=== PATIENT | male | born 1975 | race Caucasian/White ===

== ENCOUNTER 2022-02-11 17:20 | Inpatient (IN) | payer OTHER ==
[2022-02-11 19:40] VITALS: BMI 29.2
[2022-02-11] MEDS ORDERED: LOPERAMIDE HCL 2 MG CAPSULE PO PRN (20:10)
[2022-02-11] MEDS ORDERED: guaiFENesin 200 MG/10 ML 10 ML UNIT-DOSE CUPS PO PRN (20:10)
[2022-02-11] MEDS ORDERED: BISMUTH SUBSALICYLATE 524 MG/30 ML PO PRN (20:10)
[2022-02-11] MEDS ORDERED: P-EPHED 60MG/TRIPROLIDI 2.5MG TABLET PO PRN (20:10)
[2022-02-11] MEDS ORDERED: IBUPROFEN 600 MG TABLET (FP) PO PRN (20:10)
[2022-02-11] MEDS ORDERED: IBUPROFEN 400 MG TABLET (FP) PO PRN (20:10)
[2022-02-11] MEDS ORDERED: MAGNESIUM HYDROX 2400MG/30ML ORAL SUSPENSION 30 ML CUP PO PRN (20:10)
[2022-02-11] MEDS ORDERED: MAG HYDROX/AL HYDROX/SIMETH 30 ML UNIT-DOSE CUP PO PRN (20:10)
[2022-02-11] MEDS ORDERED: ACETAMINOPHEN 325 MG TABLET (FP) PO PRN (20:10)
[2022-02-11] MEDS ORDERED: ONDANSETRON *ODT* 4 MG TABLET SL PRN (20:10)
[2022-02-11] MEDS ORDERED: BENZOCAINE/MENTHOL (CHLORASEPTIC ) LOZENGE MM PRN (20:10)
[2022-02-11] MEDS ORDERED: POLYETHYLENE GLYCOL (HEALTHYLAX) 3350 17 GM PACKET PO PRN (20:10)
[2022-02-11] MEDS ORDERED: cloNIDine HCL 0.1 MG TABLET PO ONE (21:18)
[2022-02-11] MEDS: THIAMINE HCL 100 MG TABLET (FP) PO SCH (22:35)
[2022-02-11] MEDS: METHOCARBAMOL 500 MG TABLET PO PRN (22:36)
[2022-02-11] MEDS: MELATONIN 5 MG TABLETS PO SCH (22:36)
[2022-02-11] MEDS: diazePAM 5 MG TABLET PO SCH (22:36)
[2022-02-11] MEDS: NICOTINE 10 MG CARTRIDGE (INHALER) IH PRN (22:39)
[2022-02-12] MEDS: METHOCARBAMOL 500 MG TABLET PO PRN ×2 (05:08→10:10)
[2022-02-12] MEDS: diazePAM 5 MG TABLET PO SCH ×4 (05:08→22:12)
[2022-02-12] MEDS: NICOTINE 10 MG CARTRIDGE (INHALER) IH PRN ×4 (07:42→22:21)
[2022-02-12] MEDS: PRENATAL VITAMINS W/ FOLIC ACID TABLET (FP) PO SCH (10:09)
[2022-02-12] MEDS: hydrOXYzine PAMOATE 25 MG CAPSULE (FP) PO PRN (10:10)
[2022-02-12] MEDS: ACETAMINOPHEN 325 MG TABLET (FP) PO PRN ×2 (10:10→17:24)
[2022-02-12] MEDS: DICYCLOMINE HCL 10 MG CAPSULE PO PRN (10:12)
[2022-02-12] MEDS: THIAMINE HCL 100 MG TABLET (FP) PO SCH (22:12)
[2022-02-12] MEDS: MELATONIN 5 MG TABLETS PO SCH (22:21)
[2022-02-13] MEDS: diazePAM 5 MG TABLET PO PRN ×3 (02:33→17:17)
[2022-02-13] MEDS: diazePAM 5 MG TABLET PO SCH ×3 (05:26→22:17)
[2022-02-13] MEDS: hydrOXYzine PAMOATE 25 MG CAPSULE (FP) PO PRN ×2 (05:27→10:17)
[2022-02-13] MEDS: METHOCARBAMOL 500 MG TABLET PO PRN (10:17)
[2022-02-13] MEDS: PRENATAL VITAMINS W/ FOLIC ACID TABLET (FP) PO SCH (10:17)
[2022-02-13] MEDS: NICOTINE 10 MG CARTRIDGE (INHALER) IH PRN ×3 (10:20→22:21)
[2022-02-13] MEDS: MELATONIN 5 MG TABLETS PO SCH (22:18)
[2022-02-13] MEDS: DICYCLOMINE HCL 10 MG CAPSULE PO PRN (22:19)
[2022-02-13] MEDS: THIAMINE HCL 100 MG TABLET (FP) PO SCH (22:21)
[2022-02-13] MEDS: NICOTINE POLACRILEX 2 MG GUM BUC PRN (22:49)
[2022-02-14] MEDS: diazePAM 5 MG TABLET PO SCH ×2 (05:07→17:38)
[2022-02-14] MEDS: NICOTINE 10 MG CARTRIDGE (INHALER) IH PRN ×3 (09:02→18:39)
[2022-02-14] MEDS: NICOTINE POLACRILEX 2 MG GUM BUC PRN ×3 (09:03→18:39)
[2022-02-14] MEDS: diazePAM 5 MG TABLET PO PRN (10:19)
[2022-02-14] MEDS: METHOCARBAMOL 500 MG TABLET PO PRN (10:19)
[2022-02-14] MEDS: hydrOXYzine PAMOATE 25 MG CAPSULE (FP) PO PRN ×2 (10:19→22:12)
[2022-02-14] MEDS: PRENATAL VITAMINS W/ FOLIC ACID TABLET (FP) PO SCH (10:19)
[2022-02-14] MEDS: THIAMINE HCL 100 MG TABLET (FP) PO SCH (22:12)
[2022-02-14] MEDS: MELATONIN 5 MG TABLETS PO SCH (22:12)
[2022-02-15] MEDS: NICOTINE 10 MG CARTRIDGE (INHALER) IH PRN ×2 (05:25→10:19)
[2022-02-15] MEDS ORDERED: diazePAM 5 MG TABLET PO ONE (06:00)
[2022-02-15 06:25] VITALS: PULSE 92
[2022-02-15 09:55] VITALS: BP 139/88; RESP 16; TEMP 97.3
[2022-02-15] MEDS: PRENATAL VITAMINS W/ FOLIC ACID TABLET (FP) PO SCH (10:19)
[2022-02-15] MEDS: NICOTINE POLACRILEX 2 MG GUM BUC PRN (10:19)
== END 2022-02-15 10:45 | disposition other institution (70) | DRG 775 ==
LOC: YASAS 17:20 → Y6N 20:30
PROVIDERS: ADMIT Allergy & Immunology; ATTEND Surgery
PROC: HZ2ZZZZ Detoxification Services for Substance Abuse Treatment (ICD-10-PCS; principal; 2022-02-11)
DX: F10.230 Alcohol dependence with withdrawal, uncomplicated (principal); F17.210 Nicotine dependence, cigarettes, uncomplicated; Z86.69 Personal history of other diseases of the nervous system and sense organs
CPT/HCPCS: 36415; 86780; 87811; C9803-CS; U0003; U0005

== ENCOUNTER 2022-02-15 10:50 | Inpatient (IN) | payer OTHER ==
[2022-02-15] MEDS ORDERED: ACETAMINOPHEN 325 MG TABLET (FP) PO PRN (14:29)
[2022-02-15] MEDS ORDERED: IBUPROFEN 400 MG TABLET (FP) PO PRN (14:29)
[2022-02-15] MEDS ORDERED: MAGNESIUM HYDROX 2400MG/30ML ORAL SUSPENSION 30 ML CUP PO PRN (14:29)
[2022-02-15] MEDS ORDERED: LOPERAMIDE HCL 2 MG CAPSULE PO PRN (14:29)
[2022-02-15] MEDS ORDERED: MAG HYDROX/AL HYDROX/SIMETH 30 ML UNIT-DOSE CUP PO PRN (14:29)
[2022-02-15] MEDS ORDERED: P-EPHED 60MG/TRIPROLIDI 2.5MG TABLET PO PRN (14:29)
[2022-02-15] MEDS ORDERED: guaiFENesin 200 MG/10 ML 10 ML UNIT-DOSE CUPS PO PRN (14:29)
[2022-02-15] MEDS ORDERED: MAGNESIUM CITRATE 300 ML BOTTLE PO PRN (14:29)
[2022-02-15] MEDS: NICOTINE 10 MG CARTRIDGE (INHALER) IH PRN ×2 (14:54→21:15)
[2022-02-15] MEDS: NICOTINE POLACRILEX 4 MG GUM BUC PRN (14:56)
[2022-02-15] MEDS: THIAMINE HCL 100 MG TABLET (FP) PO SCH (21:14)
[2022-02-15] MEDS ORDERED: MELATONIN 5 MG TABLETS PO SCH (22:00)
[2022-02-16] MEDS: hydrOXYzine PAMOATE 25 MG CAPSULE (FP) PO PRN (00:27)
[2022-02-16] MEDS ORDERED: PRENATAL VITAMINS W/ FOLIC ACID TABLET (FP) PO SCH ×2 (10:00→11:00)
[2022-02-16] MEDS: cloNIDine HCL 0.1 MG TABLET PO SCH ×2 (12:11→21:07)
[2022-02-16] MEDS: BENZOCAINE/MENTHOL (CHLORASEPTIC ) LOZENGE MM PRN (12:12)
[2022-02-16] MEDS: NICOTINE POLACRILEX 4 MG GUM BUC PRN ×2 (12:37→21:09)
[2022-02-16] MEDS: NICOTINE 10 MG CARTRIDGE (INHALER) IH PRN ×2 (12:37→21:08)
[2022-02-16 12:48] LABS: ALBUMIN 3.9 g/dl (3.4-5.0); BLOOD UREA NITROGEN 13.9 mg/dL (7-18); CALCIUM 9.3 mg/dL (8.5-10.1)
[2022-02-16 12:51] LABS: CREATININE 0.9 mg/dL (0.55-1.3)
[2022-02-16 12:53] LABS: BILIRUBIN,TOTAL 1.7 mg/dL (0.2-1); TOT PROT 6.5 g/dl (6.4-8.2)
[2022-02-16 13:04] LABS: HEMATOCRIT 45.6 % (35.4-49); HEMOGLOBIN 14.8 GM/dL (11.7-16.9); MCH 31.5 pg (25.7-33.7); MCHC 32.4 g/dl (32.0-35.9); MEAN CELL VOLUME 97.3 fl (80-96); MEAN PLT VOLUME 9.3 fl (7.5-11.1); RBC 4.68 M/mm3 (4.00-5.60); RDW 14.1 % (11.9-15.9); WHITE BLOOD COUNT 5.6 K/mm3 (4.0-10.0)
[2022-02-16 13:06] LABS: PLATELET COUNT 201 10^3/uL (134-434)
[2022-02-16 13:58] LABS: PLATELET ESTIMATE ADEQUATE
[2022-02-16] MEDS: THIAMINE HCL 100 MG TABLET (FP) PO SCH (21:07)
[2022-02-16] MEDS: MELATONIN 5 MG TABLETS PO SCH (21:07)
[2022-02-17] MEDS: NICOTINE POLACRILEX 4 MG GUM BUC PRN ×2 (06:23→11:29)
[2022-02-17] MEDS: NICOTINE 10 MG CARTRIDGE (INHALER) IH PRN ×2 (06:23→11:29)
[2022-02-17] MEDS: BENZOCAINE/MENTHOL (CHLORASEPTIC ) LOZENGE MM PRN (07:44)
[2022-02-17] MEDS: cloNIDine HCL 0.1 MG TABLET PO SCH ×2 (09:59→21:12)
[2022-02-17] MEDS: hydrOXYzine PAMOATE 25 MG CAPSULE (FP) PO PRN (10:00)
[2022-02-17] MEDS: THIAMINE HCL 100 MG TABLET (FP) PO SCH (21:12)
[2022-02-17] MEDS: MELATONIN 5 MG TABLETS PO SCH (21:12)
[2022-02-18] MEDS: NICOTINE 10 MG CARTRIDGE (INHALER) IH PRN ×3 (09:51→21:10)
[2022-02-18] MEDS: PRENATAL VITAMINS W/ FOLIC ACID TABLET (FP) PO PRN (09:51)
[2022-02-18] MEDS: cloNIDine HCL 0.1 MG TABLET PO SCH ×2 (09:51→21:13)
[2022-02-18] MEDS: NICOTINE POLACRILEX 4 MG GUM BUC PRN (15:10)
[2022-02-18] MEDS: SUVOREXANT 10 MG TABLET PO PRN (21:12)
[2022-02-18] MEDS: THIAMINE HCL 100 MG TABLET (FP) PO SCH (21:13)
[2022-02-18] MEDS: hydrOXYzine PAMOATE 25 MG CAPSULE (FP) PO PRN (21:13)
[2022-02-19] MEDS: NICOTINE 10 MG CARTRIDGE (INHALER) IH PRN (08:50)
[2022-02-19] MEDS: NICOTINE POLACRILEX 4 MG GUM BUC PRN (08:51)
[2022-02-19] MEDS: cloNIDine HCL 0.1 MG TABLET PO SCH ×2 (09:36→21:34)
[2022-02-19] MEDS: hydrOXYzine PAMOATE 25 MG CAPSULE (FP) PO PRN ×2 (09:37→21:34)
[2022-02-19] MEDS: THIAMINE HCL 100 MG TABLET (FP) PO SCH (21:33)
[2022-02-19] MEDS: SUVOREXANT 10 MG TABLET PO PRN (21:34)
[2022-02-20] MEDS: NICOTINE 10 MG CARTRIDGE (INHALER) IH PRN ×2 (10:02→16:18)
[2022-02-20] MEDS: NICOTINE POLACRILEX 4 MG GUM BUC PRN ×2 (10:03→16:18)
[2022-02-20] MEDS: cloNIDine HCL 0.1 MG TABLET PO SCH ×2 (10:12→21:57)
[2022-02-20] MEDS: THIAMINE HCL 100 MG TABLET (FP) PO SCH (21:56)
[2022-02-20] MEDS: SUVOREXANT 10 MG TABLET PO PRN (21:59)
[2022-02-21] MEDS: hydrOXYzine PAMOATE 25 MG CAPSULE (FP) PO PRN (06:28)
[2022-02-21] MEDS: NICOTINE 10 MG CARTRIDGE (INHALER) IH PRN ×2 (06:28→14:26)
[2022-02-21] MEDS: cloNIDine HCL 0.1 MG TABLET PO SCH ×2 (09:48→21:34)
[2022-02-21] MEDS: PRENATAL VITAMINS W/ FOLIC ACID TABLET (FP) PO PRN (09:49)
[2022-02-21] MEDS: NICOTINE POLACRILEX 4 MG GUM BUC PRN ×2 (09:49→14:27)
[2022-02-21] MEDS: THIAMINE HCL 100 MG TABLET (FP) PO SCH (21:34)
[2022-02-21] MEDS: SUVOREXANT 10 MG TABLET PO PRN (21:43)
[2022-02-22 06:43] VITALS: TEMP 97.1
[2022-02-22] MEDS: NICOTINE 10 MG CARTRIDGE (INHALER) IH PRN ×3 (09:53→21:34)
[2022-02-22] MEDS: hydrOXYzine PAMOATE 25 MG CAPSULE (FP) PO PRN ×2 (09:53→21:33)
[2022-02-22] MEDS: cloNIDine HCL 0.1 MG TABLET PO SCH ×2 (09:53→21:33)
[2022-02-22] MEDS: NICOTINE POLACRILEX 4 MG GUM BUC PRN ×3 (09:53→21:35)
[2022-02-22] MEDS: PRENATAL VITAMINS W/ FOLIC ACID TABLET (FP) PO PRN (09:53)
[2022-02-22] MEDS: THIAMINE HCL 100 MG TABLET (FP) PO SCH (21:33)
[2022-02-22] MEDS: SUVOREXANT 10 MG TABLET PO PRN (21:34)
[2022-02-23 07:03] VITALS: RESP 18
[2022-02-23] MEDS: NICOTINE POLACRILEX 4 MG GUM BUC PRN (09:29)
[2022-02-23] MEDS: NICOTINE 10 MG CARTRIDGE (INHALER) IH PRN (09:29)
[2022-02-23] MEDS: cloNIDine HCL 0.1 MG TABLET PO SCH (09:29)
[2022-02-23 10:53] VITALS: BP 110/72; PULSE 66
== END 2022-02-23 16:20 | disposition left against medical advice (07) | DRG 770 ==
LOC: YASAS 10:50 → Y3E 10:52
PROVIDERS: ADMIT Allergy & Immunology; ATTEND Psychiatry & Neurology Pain Medicine
PROC: HZ42ZZZ Group Counseling for Substance Abuse Treatment, Cognitive-Behavioral (ICD-10-PCS; principal; 2022-02-15)
DX: F10.20 Alcohol dependence, uncomplicated (principal); F12.20 Cannabis dependence, uncomplicated; F17.210 Nicotine dependence, cigarettes, uncomplicated; F10.282 Alcohol dependence with alcohol-induced sleep disorder; F10.280 Alcohol dependence with alcohol-induced anxiety disorder; F10.24 Alcohol dependence with alcohol-induced mood disorder; J02.9 Acute pharyngitis, unspecified; Z62.810 Personal history of physical and sexual abuse in childhood; Z91.410 Personal history of adult physical and sexual abuse; Z86.69 Personal history of other diseases of the nervous system and sense organs; Z56.0 Unemployment, unspecified; Z59.00 Homelessness unspecified
CPT/HCPCS: 36415; 80053; 85025